=== PATIENT | male | born 1950 ===

== ENCOUNTER 2017-04-07 01:56 | Emergency (ER) | payer MEDICAID ==
[2017-04-07] MEDS ORDERED: ZOFRAN IV ONE (02:38)
[2017-04-07] MEDS ORDERED: TORADOL IV ONE ×2 (02:38→03:14)
[2017-04-07] MEDS ORDERED: NACL 0.9% 1000 ML 1,000 ML IV ONE (02:38)
[2017-04-07] MEDS ORDERED: DILAUDID IV ONE (03:14)
[2017-04-07 03:27] LABS: Basophils % (Auto) 0.6 % (0.0-1.8); Eosinophils % (Auto) 4.7 % (0.0-4.3); Mean Corpuscular HGB Conc 33 % (32-34); Mean Corpuscular Hemoglobin 30 pg (28-32); Mean Corpuscular Volume 89 fl (84-94); Platelet Count 172 K/mm3 (140-440); Red Blood Count 5.07 M/mm3 (3.65-5.03); Red Cell Distribution Width 14.5 % (13.2-15.2); White Blood Count 9.3 K/mm3 (4.5-11.0)
[2017-04-07 03:41] LABS: Alanine Aminotransferase 17 units/L (7-56); Albumin 4.2 g/dL (3.9-5); Albumin/Globulin Ratio 1.1 %; Alkaline Phosphatase 99 units/L (35-129); Anion Gap 13 mmol/L; Blood Urea Nitrogen 16 mg/dL (9-20); Calcium 9.1 mg/dL (8.4-10.2); Carbon Dioxide 27 mmol/L (22-30); Chloride 95.8 mmol/L (98-107); Glucose 164 mg/dL (75-100); Lipase 16 units/L (13-60); Potassium 4.2 mmol/L (3.6-5.0); Sodium 132 mmol/L (137-145)
[2017-04-07 03:49] LABS: Bilirubin,Urine NEG (Negative); Ketones,Urine NEG (Negative)
[2017-04-07 03:50] LABS: Blood,Urine SM (Negative); Leukocyte Esterase,Urine NEG (Negative); Mucus,Urine FEW /HPF; Nitrite,Urine NEG (Negative); Protein,Urine <15 mg/dL mg/dL (Negative)
[2017-04-07] MEDS ORDERED: ATIVAN IV ONE (06:20)
--- NOTE | 2017-04-07 06:27 | Emergency Department Report ---
HPI - General Chief Complaint: Abdominal Pain Time Seen by Provider: 04/07/17 06:12 - HPI HPI: This is a 66-year-old -[place] male who presents to the emergency department from home with complaint of left-sided flank pain. The patient was treated at the [facility] last week for a left-sided any stone with lithotripsy. 3 days ago the patient feels that he passed the stone secondary to some pain he had at that time but it went away afterwards. It started hurting very bad last night so he came in to be seen. He denies ever requiring any type of ureter stent. He denies any hematuria or dysuria. There is some nausea but no vomiting and he denies any fever or chills. He has a past medical history of diabetes, hypertension. He has a past surgical history of cholecystectomy, hernia repair and this previous lithotripsy. No recent travel or sick contacts at home. He did not take anything for his symptoms prior to presentation. ED Past Medical Hx - Past Medical History Previous Medical History?: Yes Hx Hypertension: Yes Hx Diabetes: Yes Additional medical history: KIDNEY STONES - Surgical History Past Surgical History?: Yes Hx Cholecystectomy: Yes Additional Surgical History: HERNIA REPAIR - Social History Smoking Status: Never Smoker Substance Use Type: Alcohol - Medications Home Medications: Home Medications Medication Instructions Recorded Confirmed Last Taken Type Aspirin [Aspirin BABY CHEW TAB] 81 mg PO QDAY 04/07/17 04/07/17 Unknown History AtorvaSTATin 0 mg PO QHS 04/07/17 04/07/17 Unknown History Insulin Aspart Prot/Aspart(Nf) 50 units SQ QAM 04/07/17 04/07/17 Unknown History [Novolog Mix 70/30] Lisinopril [Zestril] 5 mg PO QDAY 04/07/17 04/07/17 Unknown History Metformin HCl [Glucophage] 1,000 mg PO QDAY 04/07/17 04/07/17 Unknown History Omeprazole Magnesium [PriLOSEC Otc] 20 mg PO QDAY 04/07/17 04/07/17 Unknown History Sennosides/Docusate Sodium [Stool 1 each PO DAILY 04/07/17 04/07/17 Unknown History Softener Tablet] Tamsulosin [Flomax] 0.4 mg PO QDAY 04/07/17 04/07/17 Unknown History amLODIPine [Norvasc] 10 mg PO DAILY 04/07/17 04/07/17 Unknown History glipiZIDE [Glucotrol] 7.5 mg PO BID 04/07/17 04/07/17 Unknown History oxyCODONE /ACETAMINOPHEN [Percocet 1 tab PO Q6HR PRN 04/07/17 04/07/17 Unknown History 5/325] ED Review of Systems ROS: Stated complaint: KIDNEY PAIN Other details as noted in HPI Comment: All other systems reviewed and negative Constitutional: denies: chills, fever Eyes: denies: eye pain, eye discharge, vision change ENT: denies: ear pain, throat pain Respiratory: denies: cough, shortness of breath, wheezing Cardiovascular: denies: chest pain, palpitations Gastrointestinal: abdominal pain (left-sided abdominal pain and flank pain), nausea. denies: vomiting Genitourinary: denies: hematuria, discharge Musculoskeletal: denies: joint swelling, arthralgia Skin: denies: rash, lesions Neurological: denies: headache, weakness, paresthesias Physical Exam - Physical Exam Vital Signs: Vital Signs 04/07/17 04/07/17 04/07/17 02:17 03:06 03:30 Temperature 97.6 F Pulse Rate 105 H 84 Respiratory 26 H 18 Rate Blood Pressure 149/97 Blood Pressure 117/77 [Left] O2 Sat by Pulse 99 97 96 Oximetry 04/07/17 05:37 Temperature Pulse Rate 68 Respiratory 17 Rate Blood Pressure Blood Pressure 113/79 [Left] O2 Sat by Pulse 95 Oximetry Physical Exam: GENERAL: The patient is well-developed well-nourished. HEENT: Normocephalic. Atraumatic. Extraocular motions are intact. Patient has moist mucous membranes. Pupils equal reactive to light bilaterally. NECK: Supple. Trachea is midline. CHEST/LUNGS: Clear to auscultation. There is no respiratory distress noted. HEART/CARDIOVASCULAR: Regular. There is no tachycardia. There is no gallop rub or murmur. ABDOMEN: Abdomen is soft, nontender. Patient has normal bowel sounds. There is no abdominal distention. SKIN: Skin is warm and dry. NEURO: The patient is awake, alert, and oriented. The patient is cooperative. The patient has no focal neurologic deficits. The patient has normal speech. MUSCULOSKELETAL: There is no tenderness or deformity. There is no limitation range of motion. There is no evidence of acute injury. BACK: No midline thoracic or lumbar tenderness to palpation or deformity. There is some CVA tenderness to palpation on the left side. ED Course Vital Signs 04/07/17 04/07/17 04/07/17 02:17 03:06 03:30 Temperature 97.6 F Pulse Rate 105 H 84 Respiratory 26 H 18 Rate Blood Pressure 149/97 Blood Pressure 117/77 [Left] O2 Sat by Pulse 99 97 96 Oximetry 04/07/17 05:37 Temperature Pulse Rate 68 Respiratory 17 Rate Blood Pressure Blood Pressure 113/79 [Left] O2 Sat by Pulse 95 Oximetry - Consultations Consultation #1: Since the patient was recently at the [facility], where his urologist is located, I attempted to transfer the patient to the [facility] but they say they are on total diversion. We'll attempt [facility]. 04/07/17 07:41 Consultation #2: The patient was accepted for transfer to the [place] emergency department by the urologist, Dr. Daniels. He will be evaluated by the emergency department team first and if necessary then they will get urology involved. 04/07/17 08:20 ED Medical Decision Making - Lab Data Result diagrams: 04/07/17 03:00 04/07/17 03:00 - Radiology Data Radiology results: report reviewed CT of the abdomen and pelvis without contrast shows mild left hydronephrosis and hydroureter to the level of a 1.8 cm distal intraureteral calculus. Subcentimeter calculi of the left kidney also present. Hepatic cirrhosis. Cholecystectomy. Mild degenerative changes of the spine. Grade 1 anterior listhesis of L4 on L5. - Medical Decision Making 66-year-old male with history of recent lithotripsy for left sided nephrolithiasis presents with a return of his pain on the left abdomen and/or flank. Labs are unremarkable. CT of the abdomen and pelvis without contrast shows a 1.8 cm distal ureter calculus. We do not have urology here at this time. Attempted to send the patient back to the [facility] but they are on diversion. Accepted to transfer to the [place] emergency department for further evaluation. - Differential Diagnosis nephrolithiasis, hydronephrosis, colitis, diverticulitis Critical Care Time: No Critical care attestation.: If time is entered above; I have spent that time in minutes in the direct care of this critically ill patient, excluding procedure time. ED Disposition Clinical Impression: Nephrolithiasis, Ureterolithiasis Hydronephrosis Qualifiers: Hydronephrosis type: with ureteral calculous obstruction Qualified Code(s): N13.2 - Hydronephrosis with renal and ureteral calculous obstruction Disposition: DC/TX-70 ANOTHER TYPE HLTHCARE Is pt being admited?: No Condition: Stable Referrals: PRIMARY CARE, [Primary Care Provider] - 3-5 Days Time of Disposition: 08:59
--- NOTE | 2017-04-07 07:32 | Cat Scan Report ---
FINAL REPORT PROCEDURE: CT ABDOMEN PELVIS WO CON TECHNIQUE: Computerized axial tomography of the abdomen and pelvis was performed without intravenous contrast. This study is performed without intravascular contrast material and its sensitivity for abdominal and pelvic pathology, including neoplasms, inflammation, abscess, free fluid, thrombosis, arterial dissection and infarction, is reduced compared with a contrast enhanced study. Oral contrast was not administered limiting evaluation of the bowel as well. HISTORY: left flank pain, recent lithotripsy COMPARISON: None FINDINGS: Visualized lower thorax: No significant abnormality. Liver: Dome not included on the study. Cirrhosis. Spleen: Normal size and attenuation. Gallbladder and biliary system: Cholecystectomy. No biliary ductal obstruction. Pancreas: Normal. Adrenals: Normal. Kidneys: Normal right kidney. Sub centimeter left renal calculi. Mild left hydronephrosis and hydroureter with adjacent inflammatory changes within the fat to the level of 1.8 centimeter distal intraureteral calculus versus multiple intimately associated calculi. GI tract: No bowel obstruction. Normal appendix. Small hiatal hernia. Lymph nodes and mesentery: Normal. Vasculature: Mild atherosclerosis. No abdominal aortic aneurysm. Bladder: Normal. Reproductive organs: Normal. Peritoneum: No free fluid. Musculoskeletal structures: Mild degenerative changes of the spine. Subtle anterior listhesis of L4 on L5. Other: None. IMPRESSION: Mild left hydronephrosis and hydroureter to the level of a 1.8 centimeter distal intraureteral calculus versus intimately associated adjacent calculi. Subcentimeter calculi of the left kidney also present. Hepatic cirrhosis. Cholecystectomy. Mild degenerative changes of the spine. Grade 1 anterior listhesis of L4 on L5.
[2017-04-07 08:40] VITALS: BP 106/80
== END 2017-04-07 09:31 | disposition other institution (70) ==
LOC: ED 01:56
DX: N20.0 Calculus of kidney (principal); N20.1 Calculus of ureter; I10 Essential (primary) hypertension; E11.9 Type 2 diabetes mellitus without complications
CPT/HCPCS: 36415; 74176; 80053; 81001; 83690; 85025; 96361; 96374; 96375; 99285; J1170; J1885; J2060; J2405; J7030